=== PATIENT | male | born 1985 | race Two or more races ===

== ENCOUNTER 2023-02-28 00:07 | Emergency (ER) | payer MEDICAID, OTHER ==
[~2023-02-28] VITALS: Ht 185.4 cm; Wt 115.0 kg
[2023-02-28 00:59] LABS: Basophils # (auto) 0 10 ^3/uL (0-0.2); Eosinophils # (auto) 0.1 10 ^3/uL (0-0.8); Lymphocytes # (auto) 0.8 10 ^3/uL (0.4-5.4); Monocytes # (auto) 0.4 10 ^3/uL (0-1.3); Monocytes % (auto) 4.2 % (0.0-12.0); White Blood Cell 10.4 10^3/uL (4.4-10.8)
[2023-02-28 01:01] LABS: Basophils % (auto) 0.1 % (0.0-2.0); Eosinophils % (auto) 0.9 % (0.0-7.0); Hematocrit 50.5 % (41.0-53.0); Hemoglobin 16.8 g/dL (13.5-17.5); Lymphocytes % (auto) 7.3 % (10.0-50.0); Mean Corpuscular Hemoglobin 27.8 pg (28.0-32.0); Mean Corpuscular Hgb Conc. 33.2 g/dL (32.0-36.0); Mean Corpuscular Volume 83.8 fL (80.0-100.0); Neutrophils # (auto) 9.1 10 ^3/uL (1.6-8.6); Neutrophils % (auto) 87.5 % (37.0-80.0); Nucleated Red Blood Cells % 0.1 %; Red Blood Cells 6.03 10^6/uL (4.5-5.90); Red Cell Distribution Width 14.1 % (11.8-14.3)
[2023-02-28 01:19] LABS: Alanine Aminotransferase 24 U/L (7-40); Albumin 4.8 g/dL (3.2-4.8); Alkaline Phosphatase 104 U/L (46-116); Anion Gap 7 (5-15); Aspartate Aminotransferase 20 U/L (13-40); BUN/Creatinine Ratio 13.6 (10.0-20.0); Bilirubin, Total 0.8 mg/dL (0.2-1.0); Blood Urea Nitrogen 16 mg/dL (9-23); Calcium 9.3 mg/dL (8.7-10.4); Carbon Dioxide 26 mmol/L (20-30); Chloride 108 mmol/L (98-107); Glucose 121 mg/dL (74-106); Lipase 63 U/L (12-53); Potassium 4.1 mmol/L (3.5-5.1); Sodium 141 mmol/L (136-145); Total Protein 7.8 g/dL (5.7-8.2)
[2023-02-28 02:28] LABS: Urine Bacteria NONE SEEN /hpf (None Seen); Urine Blood Negative /uL (Negative); Urine Clarity Clear (Clear); Urine Color Yellow (Yellow); Urine Mucus FEW (None Seen); Urine Protein, UAD TRACE (Negative); Urine Specific Gravity 1.032 (1.001-1.035); Urine WBC 2 /hpf (0 - 3); Urine pH 6.5 (5.0-8.0)
[2023-02-28] MEDS ORDERED: MAALOX PLUS or MAALOX 30 ML PO ONE (02:30)
[2023-02-28] MEDS ORDERED: LIDOCAINE VISCOUS 2% 15ML UD PO ONE (02:30)
[2023-02-28] MEDS ORDERED: HYDROcodone-ACET 10/325MG TAB PO ONE (02:30)
[2023-02-28] MEDS ORDERED: METOCLOPRAMIDE HCL 10 MG TAB PO ONE (02:30)
[2023-02-28 02:51] LABS: Amphetamine Screen, Urine Neg (NEGATIVE); Barbiturate Scree,Urine Neg (NEGATIVE); Benzodiazephine Screen, Urine Neg (NEGATIVE); Cannabinoid Screen, Urine Pos (NEGATIVE); Cocaine Screen, Urine Neg (NEGATIVE); Opiate Scree,Urine Neg (NEGATIVE); Phencyclidine Screen, Urine Neg (NEGATIVE)
[2023-02-28 04:30] VITALS: TEMP 98.3
[2023-02-28] MEDS ORDERED: HYDROcodone-ACET 5/325MG TAB PO ONE (05:00)
[2023-02-28 05:10] VITALS: PULSE 81; RESP 20; O2SAT 100
[2023-02-28 06:00] VITALS: BP 134/89; PULSE 87; RESP 16
[2023-02-28] MEDS ORDERED: PANTOPRAZOLE 40 MG/10 ML VIAL INJ IV ONE (06:00)
[2023-02-28] MEDS ORDERED: ONDANSETRON HCL 4 MG/2 ML VIAL IV ONE (06:00)
[2023-02-28] MEDS ORDERED: HYDROmorphone HCL 2 MG/ML VL/or syr IV ONE (06:00)
[2023-02-28] MEDS ORDERED: IOHEXOL 300 MG/ML 100ML BOTTLE IJ ONE (06:20)
[2023-02-28] MEDS ORDERED: ZOFR4T PO (08:06)
[2023-02-28] MEDS ORDERED: PANT40TA2 PO (08:06)
== END 2023-02-28 08:48 | disposition home or self-care (01) ==
LOC: ER 00:07
DX: K29.70 Gastritis, unspecified, without bleeding (principal); Z79.899 Other long term (current) drug therapy
CPT/HCPCS: 36415; 71045; 74178; 76705; 80053; 80307; 80320; 81001; 83690; 84484; 85025; 99285; J8597; Q9967; C9113